=== PATIENT | female | born 1960 | race Caucasian/White ===

== ENCOUNTER 2023-01-16 07:56 | Day surgery (SDC) | payer SELFPAY ==
--- NOTE | 2023-01-16 | LES_PTH ---
PATIENT: ÁLVARO DING LOC: [facility] [place] U#:[id number] AGE/SX: 62/F ROOM: RE01/16/[address]: Dr. Lucia Stark MD : 1960 BED: DIS: 01/16/2023 SPEC #: [id number] RECD: 01/16/23 13:20 STATUS: TRENTON ALONDRA #: [id number] NINA: 01/16/23 00:[address]: Lucia Stark DEPT: SURGICAL PATHOLOGY RECD BY: Yaakov Sesay Tissues: Skin of face, NOS Procedures: Surgery Specimen Level IV HEADER OPERATION: Wide excision melanoma in situ left cheek PRE-OP DIAGNOSIS: Melanoma in situ of face TISSUE SUBMITTED: Melanoma in situ left cheek, two sutures jolly superior aspect, one suture oneal anterior aspect, suture for orientation only. Please check all margins. MICROSCOPIC DIAGNOSIS Melanoma in situ left cheek, wide excision: Negative for residual melanocytic lesion. Reactive basal melanocytic hyperplasia. Solar elastosis. Changes consistent with previous biopsy site. SJ:rg 01/19/2023 COMMENT Immunohistochemistry ([id number]) supports the above diagnosis. Case has been reviewed in consultation with Dr. Ventura who concurs with the above diagnosis. IDC:AM MICROSCOPIC DESCRIPTION Slides are reviewed. GROSS DESCRIPTION Received in fixative is one container labeled with the patient's name and designated melanoma in situ left cheek. The specimen consists of a round piece of porter-white skin measuring 2.2 x 2.2 cm and up to 0.4 cm in thickness. A porter-white area is noted in the center measuring 1.1 cm in greatest dimension. The specimen is inked as follows: superior margin - black, inferior margin - green, anterior margin - yellow, posterior margin - blue. Present in the container are two small triangular pieces of porter-white skin measuring 0.5 x 0.5 x 0.2 cm and 1.0 x 0.5 x 0.2 cm. The specimen is serially sectioned and submitted entirely in three cassettes. Cassette 1 also contains the detached pieces of skin. / APOLINAR:tyra 01/16/2023 TC:5 CPT: 63414
--- NOTE | 2023-01-16 | IMM_PTH ---
PATIENT: ÁLVARO DING LOC: [facility] [place] U#:[id number] AGE/SX: 62/F ROOM: RE01/16/[address]: Dr. Lucia Stark MD : 1960 BED: DIS: 01/16/2023 SPEC #: [id number] RECD: 01/19/23 13:21 STATUS: TRENTON ALONDRA #: [id number] NINA: 01/16/23 00:[address]: Lucia Stark DEPT: IMMUNOHISTOCHEMISTRY RECD BY: Shital Eldridge Tissues: Skin of face, NOS Procedures: Vimentin (add) MELAN-A (add) S100 (initial) CD68 (ADD) S-100 (add) PHYSICIAN & INSTITUTION [place] [id number] SPECIMEN INFORMATION: Tissue Source: Melanoma in situ left cheek Clinical Info: Melanoma in situ of face Specimen Number: [id number] #1-3 CPT code: 04956, 77469 x7 METHODOLOGY: Deparaffinized sections of prefer/formalin-fixed tissue or PAP/DQ stained slides are incubated with monoclonal/polyclonal antibodies/oligonucleotide probes. Localization is made via biotin free immunoperoxidase method. Appropriate controls are performed and reacted as expected. Results on target cell population are indicated in the following table: RESULTS: ANTIBODY / CLONE RESULT Block 1 Melan A (A103) negative S-100 (4C4.9) negative Block 2 Melan A (A103) negative S-100 (4C4.9) negative CD68 (KP-1) positive (macrophages) Vimentin (V9) negative Block 3 Melan A (A103) negative S-100 (4C4.9) negative These tests were developed and their performance characteristics determined by [facility]. They may not have been cleared or approved by the [place]. Food and Drug Administration. The FDA has determined that such clearance or approval is not necessary. The above immunohistochemical/dualISH markers are ordered and reviewed by the Pathologist. INTERPRETATION: Melanoma in situ left cheek, wide excision: Negative for residual melanocytic lesion. Reactive basal melanocytic hyperplasia. APOLINAR:tyra 01/21/2023
[2023-01-16 08:11] VITALS: BP 142/94; PULSE 74; RESP 18; TEMP 36.6; O2SAT 97; BMI 35.9
--- NOTE | 2023-01-16 09:46 | PCM.HP.BLA ---
History and Physical Date of Admission: 01/16/23 Interim note: The patient is examined and there are no changes to the history and physical performed on 01/13/2023. Informed consent is obtained. Assessment & Plan Assessment/Plan (1) Melanoma in situ of face: PLAN: Plan Patient for wide excision melanoma in situ left cheek.
[2023-01-16 10:05] VITALS: BP 118/84; BP 148/92; O2SAT 94; O2SAT 95; O2SAT 96; O2SAT 97; O2SAT 98
[2023-01-16] MEDS: Lidocaine 1% /Epi 1:100 9 ML, Sodium Bicarbonate 1 MEQ OPERA.SITE (10:30)
--- NOTE | 2023-01-16 11:28 | DCINST_ITS ---
Discharge Instructions Diet Discharge Diet: No restrictions Activity Additional Activity Instructions:: Keep your back elevated. Avoid bending or straining. Take the oral antibiotic (Keflex) 2x a day until finished. Keep the dressing dry. Do not remove until seen in the office. Follow Up Care Please Follow Up With: Lucia Stark MD When: in 2 weeks for recheck Test Results: Test results from this visit will be discussed in further detail at your follow- up appointment, if applicable. Discharge Plan Admission Attending Provider: Lucia Stark Primary Care Provider: LUNA COSTELLO Discharge Orders/Prescriptions Prescriptions: No Action multivitamin [Daily Multi-Vitamin] Tablet 1 tab PO DAILY magnesium hydroxide [Dulcolax (magnesium hydroxide)] 400 mg/5 mL suspension 400 mg PO DAILY PRN rosuvastatin 5 mg tablet 5 mg PO DAILY omeprazole 20 mg capsule,delayed release(DR/EC) 20 mg PO DAILY krill oil [id number] mg capsule 1 cap PO DAILY Referrals / Follow Up: LUNA COSTELLO [Other] Lucia Stark MD [Med Staff - Active Staff] - Disposition Disposition (needs filled in before D/C Order can be placed): Home, Self Care
--- NOTE | 2023-01-16 11:31 | PCM.OPRPT ---
Problems Associated Problem List Diagnoses (1) Melanoma in situ of face: Report of Operation Date of Procedure: 01/16/23 Pre-Operative Diagnosis: Melanoma and site to left cheek Post-Operative Diagnosis: Same Surgery/Procedure Performed:: Wide excision melanoma left cheek (0.5cm margin) 4cm. Intermediate closure Surgeon: Lucia Stark Type of Anesthesia: Local Estimated Blood Loss (mL): Minimal Description of Procedure: The procedure of wide excision melanoma of the left cheek was explained to the patient. The patient is aware that pathology is pending and further surgery would depend on the final results. She is aware of the need for wide excision to help prevent recurrence. She is marked in the preop holding area prior to surgery. The patient was brought to the operating room and placed on the operating room table in the supine position. The left cheek is prepped and draped in the usual sterile fashion. We initially began with anesthetizing the area with 1% Xylocaine with epinephrine. An approximately 0.5-1.0 margin is demarcated around the shave biopsy site and our skin incision is greater than 0.5 cm. This is carried down through the subcutaneous tissue. A full-thickness excision is then done including subcutaneous fat. Hemostasis is controlled with cautery. Following this, silk sutures were used to initially stretch the skin. These were replaced with [id number] Monocryl sutures in the subcutaneous tissue and dermis. Skin edges were approximated with a running subcuticular Monocryl suture. Further refinement the closure was done with a fast-absorbing gut. Dermabond and Steri-Strips were placed on the site. She tolerated the procedure well was taken to the recovery area in an awake and stable condition. Needle and sponge counts are correct. Complications None Admit VTE Documentation VTE Mechan Device Prophylaxis: None Reason prophylaxis not ordered:: Treatment Not Indicated
[2023-01-16 11:35] VITALS: BP 129/72; PULSE 68; RESP 16; TEMP 36.6; O2SAT 97
--- NOTE | 2023-01-16 11:37 | DCINST_ITS ---
Discharge Instructions Diet Discharge Diet: No restrictions Activity Additional Activity Instructions:: Keep your back elevated. Avoid bending or straining. Take the oral antibiotic (Keflex) 2x a day until finished. Keep the dressing dry. Do not remove until seen in the office. Follow Up Care Please Follow Up With: Lucia Stark MD Test Results: Test results from this visit will be discussed in further detail at your follow- up appointment, if applicable. Discharge Plan Admission Attending Provider: Lucia Stark Primary Care Provider: LUNA COSTELLO Discharge Orders/Prescriptions Prescriptions: No Action multivitamin [Daily Multi-Vitamin] Tablet 1 tab PO DAILY magnesium hydroxide [Dulcolax (magnesium hydroxide)] 400 mg/5 mL suspension 400 mg PO DAILY PRN rosuvastatin 5 mg tablet 5 mg PO DAILY omeprazole 20 mg capsule,delayed release(DR/EC) 20 mg PO DAILY krill oil [id number] mg capsule 1 cap PO DAILY Referrals / Follow Up: LUNA COSTELLO [Other] Lucia Stark MD [Med Staff - Active Staff] - Disposition Disposition (needs filled in before D/C Order can be placed): Home, Self Care
--- NOTE | 2023-01-16 11:38 | DCINST_ITS ---
Discharge Instructions Diet Discharge Diet: No restrictions Activity Additional Activity Instructions:: Keep your back elevated. Avoid bending or straining. Take the oral antibiotic (Keflex) 2x a day until finished. Keep the dressing dry. Do not remove until seen in the office. Follow Up Care Please Follow Up With: Lucia Stark MD Test Results: Test results from this visit will be discussed in further detail at your follow- up appointment, if applicable. Discharge Plan Admission Attending Provider: Lucia Stark Primary Care Provider: LUNA COSETLLO Discharge Orders/Prescriptions Prescriptions: New cephalexin 500 mg capsule 500 mg PO BID Qty: 14 0RF No Action multivitamin [Daily Multi-Vitamin] Tablet 1 tab PO DAILY magnesium hydroxide [Dulcolax (magnesium hydroxide)] 400 mg/5 mL suspension 400 mg PO DAILY PRN rosuvastatin 5 mg tablet 5 mg PO DAILY omeprazole 20 mg capsule,delayed release(DR/EC) 20 mg PO DAILY krill oil [phone] mg capsule 1 cap PO DAILY Referrals / Follow Up: LUNA COSTELLO [Other] Lucia Stark MD [Med Staff - Active Staff] - Disposition Disposition (needs filled in before D/C Order can be placed): Home, Self Care
== END 2023-01-16 12:12 | disposition home or self-care (01) ==
LOC: SDC 08:00 → AC 08:01
PROVIDERS: Referring Provider Plastic Surgery; Visit Provider Plastic Surgery
PROC: (CPT 11646; principal; 2023-01-16 09:15)
DX: D03.39 Melanoma in situ of other parts of face (principal); L57.8 Other skin changes due to chronic exposure to nonionizing radiation
CPT/HCPCS: 11646; 12052; 88305; 88341; 88342